=== PATIENT | male | born 1955 | race Caucasian/White ===

== ENCOUNTER 2024-07-13 18:22 | Emergency (ER) | payer MEDICARE, OTHER, SELFPAY ==
[2024-07-13 18:28] VITALS: BP 171/98
--- NOTE | 2024-07-13 19:33 | ED.GENMED ---
History of Present Illness
General
Chief Complaint: Musculo-Skeletal Complaint
Time Seen by Provider: 07/13/24 19:03
History of Present Illness
History of Present Illness:
68-year-old male with history of diabetes and hypertension presenting to the emergency department for right shoulder injury. Patient reports prior to arrival he was in his garage. He tripped trying to get the trash can and fell backward, landing
on his right shoulder. He since has had limited mobility of the right shoulder. Denies numbness or tingling. Denies any head injury or neck pain. Denies additional injuries from the fall. Denies prodromal some lightheadedness or dizziness.
Denies chest pain or difficulty breathing. Denies additional acute medical complaints
Phy Exam
Physical Exam
Physical Exam:
General: Well-appearing, no clinical signs of dehydration, nontoxic and in no acute distress
HEENT: protecting airway
Head: atraumatic
Neck: appears supple, no tenderness
CV: Normal heart rate
Resp: No accessory muscle use, no increased work of breathing
Abd: Soft and non-distended, no tenderness to palpation, normal bowel sounds
Extremities: No deformities, no swelling, no erythema. Distal sensation tact. Limited range of motion in abduction at the shoulder. Reproducible tenderness to the posterior aspect of the shoulder. Range of motion intact to the elbow
Neuro: alert, no focal neurologic deficit
: deferred
Rectal: deferred
Psych: Normal affect
Skin: Intact
Course
Orders/Labs/Results
Orders:
Orders
07/13/24 18:31
Shoulder, Right, Trauma [CR Shoulder, Trauma - Right] Urgent
Comment:
Reason For Exam: right shoulder pain fell back onto shoulder
07/13/24 19:23
Sling Right-Treatment ONCE
Ketorolac [Toradol] 15 mg IM NOW STA
Vital Signs
Initial and Last Documented VS:
Initial Vital Signs
Temp Pulse Resp BP Pulse Ox
97.7 F 88 16 171/98 98
07/13/24 18:28 07/13/24 18:28 07/13/24 18:28 07/13/24 18:28 07/13/24 18:28
Last Documented Vital Signs
Temp Pulse Resp BP Pulse Ox
97.7 F 88 16 171/98 98
07/13/24 18:28 07/13/24 18:28 07/13/24 18:28 07/13/24 18:28 07/13/24 18:28
MDM/Problems Addressed
MDM/Problems Addressed:
68-year-old male presenting to the emergency department after a fall with injury to the right shoulder. Vital signs are significant for high blood pressure.
On exam, patient is resting comfortably, no acute distress or discomfort. No obvious deformity or swelling to the right lower extremity, however does have limited range of motion in abduction at the shoulder joint. No neurovascular compromise with
intact sensation and pulses. Ultimately suspect rotator cuff injury. Patient had x-ray imaging completed, negative for fracture or malalignment. Will place in sling for comfort. Toradol administered for pain. At this time feel stable for
discharge with continued outpatient supportive therapy. Advised outpatient follow-up with orthopedics for potential MRI if injury is not improving, again indicating a possible rotator cuff tear. Return precautions discussed and patient verbalized
understanding
*Critical Care Note
Total Time (30-74mins, 75-104mins- exclusive of procedures): Not Applicable
ED Attending Note
-
Portions of this chart may have been created with voice recognition software.� Occasional wrong word or��sound alike� substitutions may have occurred due to the inherent limitations of voice recognition software.
Discharge Plan
Departure
Patient Disposition: Home (Routine Discharge)
Date of Disposition: 07/13/24
Time of Disposition: 19:31
Patient with high blood pressure during this ER visit?: Yes
Condition: Good
Discharge Problem:
Right shoulder injury
Instructions: Rotator Cuff Injury (DC), How to Use a Shoulder Sling, BLOOD PRESSURE
Referrals:
Kashmir Pagan MD [Active] -
Janet Elizabeth MD [Family Provider] -
Activity Restrictions/Additional Instructions:
You were seen in the emergency department for shoulder pain
You were found to have an x-ray that did not show any sign of fracture or dislocation. You are suspected to have a rotator cuff injury. Please follow-up with orthopedic doctor
Please follow-up closely with your primary care physician.
Return to the emergency department for any worsening of your symptoms, or any development of chest pain, difficulty breathing, abdominal pain with persistent vomiting and inability to tolerate food or liquid by mouth (concern for dehydration),
weakness, headache or confusion, fever greater than 100.4, or any additional symptoms that are concerning to you.
Thank you for choosing [facility].
Interventions
Interventions:
*Risk Screen - Suicide Last Done: 07/13/24 18:28
*General Assessment Last Done: 07/13/24 18:39
*Neglect/Abuse Screening Last Done: 07/13/24 18:28
*ED- Fall Risk Assessment Last Done: 07/13/24 18:39
*ED COVID-19 Vaccine History Last Done: 07/13/24 18:39
ED-Musculoskeletal Assessment Last Done: 07/13/24 18:39
Discharge Date and Time
Print Language: SCOTTISH
[2024-07-13] MEDS: TORADOL 15 MG IM (19:48)
== END 2024-07-13 20:05 | disposition home or self-care (01) ==
LOC: EMR 18:22
PROVIDERS: EMERGENCY PHYSICIAN Student in an Organized Health Care Education/Training Program; FAMILY PHYSICIAN Surgery Surgical Oncology
DX: S49.91XA Unspecified injury of right shoulder and upper arm, initial encounter (principal); W01.0XXA Fall on same level from slipping, tripping and stumbling without subsequent striking against object, initial encounter; E11.9 Type 2 diabetes mellitus without complications; I10 Essential (primary) hypertension
CPT/HCPCS: 99283; 96372; 73030